=== PATIENT | female | born 1985 | race Hispanic/Latino ===

== ENCOUNTER 2023-04-17 18:33 | Emergency (ER) | payer SELFPAY ==
[2023-04-17 19:46] LABS: Bilirubin Neg (Negative); Blood, Urine 250 (Negative); Glucose, Urine (Dipstick) Normal (Negative); Ketone, Urine Negative (Negative); Leukocyte Negative (Negative); Nitrite Negative (Negative); Protein, Urine (Dipstick) 15 mg/dl (Neg-Trace); Specific Gravity, Urine 1.015 (1.005-1.030); Urobilinogen Normal mg/dL (Less than 2)
[2023-04-17 20:24] LABS: Clarity Hazy (Clear)
[2023-04-17 20:31] LABS: CAUTI Indications for Culture Pregnancy; Squamous Epithelial 0-3 HPF (0-3); WBC/HPF None Seen HPF (0-3)
[2023-04-17 20:32] LABS: Urine Culture Reflex Yes Yes
== END 2023-04-17 21:06 | disposition home or self-care (01) ==
LOC: CSHERS 18:33
DX: O20.0 Threatened abortion (principal); O09.511 Supervision of elderly primigravida, first trimester; Z3A.01 Less than 8 weeks gestation of pregnancy
CPT/HCPCS: 76801; 81001; 87086